=== PATIENT | male | born 1985 | race Caucasian/White ===

== ENCOUNTER 2018-11-26 17:13 | Emergency (ER) | payer OTHER ==
[2018-11-26 18:12] VITALS: BP 156/96
--- NOTE | 2018-11-26 19:41 | UC ---
Back Pain HPI - HPI Summary HPI Summary: Per tip cutter: "Woke up Thursday am (0100) with nagging pain in right lower back. Took ibuprofen and went back to sleep. Does not recall injuring it in any way. Pain has not gotten worse than just a nagging in his back. He is here as a precautionary measure. Denies any problems with urination. No physical limits or increased pain with ROM." -no trauma. no hematuria. pain is mild. no dysuria -has looked on the internet and spoken with many people and he became concerned about people telling him to get checked out for GB, kidney stone, UTI. just wants to make sure. -has been trying to work at losing weight. hasnt weighed himslef sofia long time but feels like his belt is 1 notch looser today. -stated weight 390. asked for weight to be done today and he weighs in at 445 lbs. -denies radiation into rt buttocks or down legs -no w/n/t. -no loss of bowel or bladder function. no saddle anesthesia. - History of Current Complaint Chief Complaint: UCBackPain Stated Complaint: RT LOWER BACK PAIN Time Seen by Provider: 11/26/18 18:59 Pain Intensity: 1 - Allergies/Home Medications Allergies/Adverse Reactions: Allergies Allergy/AdvReac Type Severity Reaction Status Date / Time No Known Allergies Allergy Verified 05/14/15 18:58 Home Medications: Home Medications Hydrochlorothiazide TAB* [Hydrodiuril TAB*] 12.5 mg PO DAILY 11/26/18 [History Confirmed 11/26/18] metFORMIN* [Glucophage 500 MG TAB *] 500 mg PO BID 11/26/18 [History Confirmed 11/26/18] PMH/Surg Hx/FS Hx/Imm Hx Previously Healthy: Yes Endocrine History: Diabetes Cardiovascular History: Hypertension - Surgical History Surgical History: None - Family History Known Family History: Positive: Hypertension - Social History Alcohol Use: Rare Substance Use Type: None Smoking Status (MU): Former Smoker When Did the Patient Quit Smoking/Using Tobacco: many years ago Review of Systems All Other Systems Reviewed And Are Negative: Yes Constitutional: Positive: Negative Skin: Positive: Negative Eyes: Positive: Negative ENT: Positive: Negative Respiratory: Positive: Negative Cardiovascular: Positive: Negative Gastrointestinal: Positive: Negative Genitourinary: Positive: Negative Motor: Positive: Negative Neurovascular: Positive: Negative Musculoskeletal: Positive: Other: - right low back pain Neurological: Positive: Negative Psychological: Positive: Negative Is Patient Immunocompromised?: No Physical Exam Triage Information Reviewed: Yes Appearance: Well-Appearing, No Pain Distress, Obese - very pleasant Vital Signs: Initial Vital Signs Temp 98.1 F 11/26/18 18:05 Pulse 88 11/26/18 18:05 Resp 12 11/26/18 18:05 BP 156/96 11/26/18 18:05 Pulse Ox 97 11/26/18 18:05 Vital Signs Reviewed: Yes Eye Exam: Normal Neck exam: Normal Respiratory Exam: Normal Cardiovascular Exam: Normal Abdomen Description: Positive: Nontender - obese and difficult to assess for deep palpation, Soft Musculoskeletal: Positive: Other: - L/s spine NT - good ROM. neg SLR b/l strnegth 5/5/ b/l. + 2 patella equal/symmetric b/l. sensation intact. tender at right upper lumbar paraspinal area Neurological Exam: Normal Psychological Exam: Normal Skin Exam: Normal Back Pain Course/Dx - Course Course Of Treatment: pain is likely Rt low back strain. no red flag sx. localized to rt low back. no hematuria. pain is not severe. no dysuria. -no fever -disc the role of weight loss in relief of LBP and importance of core strength to help back pain. he has worked w/ someone to help w/ wt loss. discssed smaller protion sizes, avoiding sweets, snacks and no food after 7 PM -no trauma. young age. no role for xray at this time. will avoid to avoid radiation exposure but would xray if sx increase or persist. he is agreeable w/ plan - Differential Dx/Diagnosis Differential Diagnosis/HQI/PQRI: Strain, Sprain Provider Diagnosis: Low back strain Discharge - Sign-Out/Discharge Documenting (check all that apply): Patient Departure All imaging exams completed and their final reports reviewed: No Studies - Discharge Plan Condition: Stable Disposition: HOME Patient Education Materials: Low Back Strain (ED) Referrals: No Primary Care Phys,[facility]OPCP [Primary Care Provider] - [facility] [Provider Group] Additional Instructions: Your symptoms are likely coming from a muscle pull in your low back. There is no indication for an xray at this time as there was no trauma or risk for fracture. However, consideration to xray can be considered if your symptoms increase or persist. -biofreeze, heat or ice can be helpful. -we talked about the benefit of weight loss to reduce the strain on your back -Your blood pressure is elevated today. Please make sure to follow up with a physician at [facility] for follow up. - Billing Disposition and Condition Condition: STABLE Disposition: Home
== END 2018-11-26 19:52 | disposition home or self-care (01) ==
LOC: UCCORT 17:13
DX: S39.012A Strain of muscle, fascia and tendon of lower back, initial encounter (principal); X58.XXXA Exposure to other specified factors, initial encounter; Y92.9 Unspecified place or not applicable; E11.9 Type 2 diabetes mellitus without complications; I10 Essential (primary) hypertension; Z79.84 Long term (current) use of oral hypoglycemic drugs; Z79.899 Other long term (current) drug therapy; Z87.891 Personal history of nicotine dependence
CPT/HCPCS: 99201; G0463